=== PATIENT | female | born 1995 | race Caucasian/White ===

== ENCOUNTER 2019-04-25 23:07 | Emergency (ER) | payer SELFPAY ==
[~2019-04-25] VITALS: Ht 180.3 cm; Wt 122.7 kg
[2019-04-26 01:00] VITALS: BP 138/93
[2019-04-26] MEDS ORDERED: PENICILLIN V POTASSIUM 500 MG TABLET PO ONE (01:00)
[2019-04-26] MEDS ORDERED: KETOROLAC TROMETHAMINE 60 MG/2 ML VIAL IM ONE (01:00)
== END 2019-04-26 01:25 | disposition home or self-care (01) ==
LOC: EMS 23:07
DX: K08.89 Other specified disorders of teeth and supporting structures (principal)
CPT/HCPCS: 96372; 99283; J1885